=== PATIENT | male | born 1960 | race Caucasian/White ===

== ENCOUNTER 2018-04-07 10:36 | Inpatient (IN) | payer OTHER, SELFPAY ==
[2018-04-07] MEDS ORDERED: Bupivacaine 0.5% 10 ML VIAL ONE (11:47)
[2018-04-07] MEDS ORDERED: Lidocaine 1% (PF) 30 ML VIAL ONE (11:47)
[2018-04-07] MEDS ORDERED: CEFAZOLIN 1 GM VIAL ONE (11:54)
--- NOTE | 2018-04-07 12:02 | RAD ---
THREE VIEWS LEFT HAND: COMPARISON: None. HISTORY: Cut finger on a rope 1 hour prior 1 hour prior when attempting to catch a horse. FINDINGS: There is a mallet deformity of the middle finger at the distal phalanx. No fracture is seen. There is a radiopaque foreign body adjacent to the index finger near the metacarpophalangeal joint. IMPRESSION: Mallet deformity of the middle finger may be acute or chronic. This could represent a rupture of the common extensor tendon if acute. POS: [facility]
[2018-04-07] MEDS ORDERED: Ondansetron PF 4 MG/2 ML Vial ONE (15:20)
[2018-04-07] MEDS ORDERED: Dexamethasone 20 MG/5 ML VIAL ONE (15:20)
[2018-04-07] MEDS ORDERED: PROPOFOL 200 MG/20 ML VIAL ONE (15:20)
[2018-04-07] MEDS ORDERED: Lidocaine 1% PF 5 ML VIAL ONE (15:20)
[2018-04-07] MEDS ORDERED: Ketorolac Tromethamine 30 MG/ML VIAL ONE (15:20)
[2018-04-07] MEDS ORDERED: Metoclopramide HCl 10 MG/2 ML VIAL ONE (15:20)
[2018-04-07] MEDS ORDERED: ePHEDrine/0.9% NaCl/PF SYRINGE 50 mg/10 ml ONE (15:20)
[2018-04-07] MEDS ORDERED: Bacitracin Zinc Ointment 30 gm TUBE ONE (15:45)
[2018-04-07] MEDS ORDERED: Bupivacaine PF 0.5% 30 ML VIAL ONE (15:45)
[2018-04-07] MEDS ORDERED: Sodium Chloride 0.9% 30 ML ONE (15:45)
[2018-04-07] MEDS ORDERED: Fentanyl 100 MCG/2 ML VIAL ONE (15:51)
[2018-04-07] MEDS ORDERED: Ondansetron HCl/PF 4 MG/2 ML Vial IVP PRN (18:10)
[2018-04-07] MEDS ORDERED: Promethazine HCl 25 MG/ML VIAL IM PRN (18:22)
[2018-04-07] MEDS ORDERED: Morphine 2 MG/ML SYRINGE IVP PRN (18:22)
[2018-04-07] MEDS ORDERED: HYDROcodone/Acetaminophen 5/325 mg Tablet PO PRN (18:22)
[2018-04-07] MEDS ORDERED: Acetaminophen 325 MG TAB PO PRN (18:22)
[2018-04-07] MEDS ORDERED: Ondansetron PF 4 MG/2 ML Vial IV PRN (18:22)
[2018-04-07] MEDS ORDERED: Ketorolac Tromethamine 30 MG/ML VIAL IVP PRN (18:25)
[2018-04-07] MEDS ORDERED: Meperidine HCl/PF 25 MG/ML VIAL IM PRN (18:25)
[2018-04-07] MEDS ORDERED: RENALLY ADJUST ALL ANTIBIOTICS FS SCH (18:30)
[2018-04-07] MEDS: Aspirin 81 mg Enteric Coated Tablet PO SCH (20:22)
[2018-04-07] MEDS: Vancomycin HCl 1 GM in Premix Bag 1 BAG IVPB SCH (20:22)
[2018-04-07] MEDS: traMADol HCl 50 MG TAB PO PRN (20:25)
--- NOTE | 2018-04-07 20:50 | RAD ---
LEFT MIDDLE FINGER INTRAOPERATIVE FLUOROSCOPIC IMAGES: COMPARISON: Views of the left hand done earlier today, TECHNIQUE: Three intraoperative fluoroscopic images of the left middle finger are submitted for interpretation. Fluoroscopic guidance was provided for Dr. Quezada. FINDINGS/IMPRESSION: Intraoperative fluoroscopic images demonstrate two K-wires transfixing the distal interphalangeal cass nt of the left middle finger. There is suggestion of a tiny avulsion fracture at the medial aspect b ase of the distal phalanx. Correlation with intraoperative findings is recommended. POS: [facility]
[2018-04-07] MEDS: Ketorolac Tromethamine 30 MG/ML VIAL IVP SCH (23:06)
[2018-04-07 23:33] VITALS: BMI 36.9
[2018-04-08] MEDS: traMADol HCl 50 MG TAB PO PRN (03:13)
[2018-04-08] MEDS: Ketorolac Tromethamine 30 MG/ML VIAL IVP SCH ×4 (05:38→23:53)
[2018-04-08] MEDS: Vancomycin HCl 1 GM in Premix Bag 1 BAG IVPB SCH ×2 (08:51→21:54)
[2018-04-08] MEDS: Aspirin 81 mg Enteric Coated Tablet PO SCH ×2 (08:51→21:54)
[2018-04-08] MEDS ORDERED: TETANUS AND DIPHTHERIA TOX/PF 0.5 ML DISP.SYRIN IM SCH (09:00)
--- NOTE | 2018-04-08 09:57 | OP ---
DATE OF PROCEDURE: 04/07/2018 PREOPERATIVE DIAGNOSES: 1. Left middle finger open dislocation. 2. Left middle finger open extensor tendon laceration terminal nearly partial avulsion. 3. Left middle finger radial collateral ligament tear. 4. Left middle finger digital nerve laceration, radial aspect 2 of 3 rami, terminal, and 3.0 cm woun d. POSTOPERATIVE DIAGNOSES: 1. Left middle finger open dislocation. 2. Left middle finger open extensor tendon laceration terminal nearly partial avulsion. 3. Left middle finger radial collateral ligament tear. 4. Left middle finger digital nerve laceration, radial aspect 2 of 3 rami, terminal, and 3.0 cm woun d. Intact circulation. PROCEDURES PERFORMED: 1. Wound debridement. 2. Debridement of material associated open dislocation with techniques as follows for both the two d ebridements. A. Excisional technique. B. Use of curette, tenotomy scissors, Crile hemostat, [place] blade, Pulsavac. 3. Mild contamination found in the caudal articular, moderate contamination found in the subcutaneou s tissue, requiring more extensive debridement and the excisional technique. 4. Microscopic radial digital nerve repair, 9-0 Nurolon suture. 5. Open reduction and internal fixation of open middle finger distal interphalangeal joint dislocati on. 6. Open extensor tendon repair. 7. Open radial collateral ligament repair. 8. C-arm supervision including debridement of material associated open dislocation distal phalangeal joint. TOURNIQUET TIME: 66 minutes. BLOOD LOSS: 50 mL. FINDINGS: Moderate soft tissue contamination, negative chondral surface damage. INDICATION: The patient with a rope type rotational injury leaving him with open dislocation, dorsal wound more than palmar did extend on the radial aspect, approximately 6 mm almost to the midline, bu t did not cross the midline or palmar aspect. The patient had good circulation preop. DESCRIPTION OF PROCEDURE: After successful general LMA technique by [facility], the limb wa s prepped and draped. The patient has already been anesthetized in the emergency room, could not get a good digital sensory exam, so we did not add more medication. The patient then had the limb prepped and draped. Time out was done appropriately. We exsanguinated the limb to 250 mmHg pressure. His transverse incision was extended distally 5 mm approximately 1 c m exposed, neurovascular bundle where we could see, the deepest portion of his rami was intact, but t he 2 rami of the digital nerves were partially lacerated. We then extended incision enough proximally, so we could expose the entire joint surface, the extenso r tendon was involved partially, 2-3 mm of insertion still left at the nail bed junction and some inv olving the nail germinal matrix base as well. We then did debridement as listed above using t echnique to open the joint, finished debridement of subcutaneous tissue with most contamination was l ocated and then we saw the radial collateral ligament laceration well. We then brought C-arm to the field, there are open reduction after debridement of both the wound and the material associated open with the fracture, visualized the joint being reduced through the defect in the extensor mechanism as well as of the C-arm and performed two 0.35 K-wire fixation in the frontal and sagittal planes and t he joint nearly anatomic. No over compression was accomplished. Now, the joint was stable. Then, we did a repair of the extensor tendon back on its most radial side of the laceration involved a 2 to 3 mm area of tendon distally, so this was repaired using 4-0 Prolene with a khqlrl-rl-[id number] parra ture. The last 5 mm involved near the nail bed, so it was repaired back to the nail bed with 4-0 chr omic in a [id number]-tikra pattern. There were no other defects seen. We then repaired with a 4-0 Pr olene in interrupted [id number]-jg-[id number] fashion of radial collateral ligaments. Microscope brought to the field now. We then brought the microscope on the field to finish the reduc tion. The C-arm was moved away from the field after wires were cut below the distal level of the epi dermis. With the microscope, we identified the digital nerve were showed 2 rami, one completely lace rated, one partially evulsed, and one intact. We then performed prepare of the 2 rami that had the i njury with interrupted 9-0 nylon suture, 2 each for each rami. We had already finished irrigation, before performed the neurovascular repairs, irrigating some sligh tly, we finished debridements, C-arm was off the field and then we closed, repaired the laceration wh ich was 3 cm using interrupted 5-0 nylon. The patient then had the wires cut, hemostasis was excelle nt, so we then placed an Adaptic bacitracin underneath the eponychial fold, more bacitracin ove r the incision area, put him in a dorsal block splint with the PIP and about 30 degrees of flexion wi th the split coming 6-7 mm distal to the long finger. He left the operating room without evidence of anesthetic or operative complication.
[2018-04-09 08:37] LABS: Vancomycin, Trough 8.4 ug/mL
[2018-04-09] MEDS: Aspirin 81 mg Enteric Coated Tablet PO SCH (09:08)
[2018-04-09] MEDS: Vancomycin HCl 1 GM in Premix Bag 1 BAG IVPB SCH (09:08)
[2018-04-09] MEDS ORDERED: Hydrochlorothiazide 25 MG TAB PO SCH (09:45)
[2018-04-09] MEDS ORDERED: Vancomycin HCl 500 MG in Sodium Chloride 0.9% 100 ML IVPB SCH (11:30)
[2018-04-09 12:38] VITALS: BP 136/80; TEMP 98.1
[2018-04-09] MEDS ORDERED: Vancomycin HCl 1.5 GM in Sodium Chloride 0.9% 250 ML 300 ML IVPB SCH (21:00)
[2018-04-10] MEDS ORDERED: Hydrochlorothiazide 25 MG TAB PO SCH (09:00)
== END 2018-04-09 16:09 | disposition home or self-care (01) | DRG 502 ==
LOC: ERS 10:36 → SDC 13:46 → SURG B 18:51 → OBSVTOIN 04-09 08:37
PROVIDERS: ADMIT Orthopaedic Surgery Hand Surgery; ATTEND Orthopaedic Surgery Hand Surgery
PROC: 0MQ80ZZ Repair Left Hand Bursa and Ligament, Open Approach (ICD-10-PCS; principal; 2018-04-07)
PROC: 0LQ80ZZ Repair Left Hand Tendon, Open Approach (ICD-10-PCS; 2018-04-07)
PROC: 0PSV04Z Reposition Left Finger Phalanx with Internal Fixation Device, Open Approach (ICD-10-PCS; 2018-04-07)
DX: S63.253A Unspecified dislocation of left middle finger, initial encounter (principal); S61.213A Laceration without foreign body of left middle finger without damage to nail, initial encounter; S63.613A Unspecified sprain of left middle finger, initial encounter; S64.493A Injury of digital nerve of left middle finger, initial encounter; W23.0XXA Caught, crushed, jammed, or pinched between moving objects, initial encounter; I10 Essential (primary) hypertension
CPT/HCPCS: 36415; 76001; 80202; 96374; J0690; J1100; J1885; J2001; J2270; J2405; J2704; J2765; J3010; J3370; J3490; J7050; S0020

== ENCOUNTER 2019-06-09 08:54 | Outpatient (CLI) | payer OTHER | END 2019-06-09 08:55 | disposition home or self-care (01) | LOC: DTY/OP 08:54 | PROVIDERS: ATTEND Specialist | DX: Z01.818 Encounter for other preprocedural examination (principal); E66.01 Morbid (severe) obesity due to excess calories | CPT/HCPCS: 97802 ==

== ENCOUNTER 2019-06-26 09:34 | Outpatient (CLI) | payer OTHER ==
--- NOTE | 2019-06-29 18:58 | EKG ---
Test Reason : Blood Pressure : / mmHG Vent. Rate : 056 BPM Atrial Rate : 056 BPM P-R Int : 174 ms QRS Dur : 096 ms QT Int : 448 ms P-R-T Axes : 042 038 021 degrees QTc Int : 432 ms Sinus bradycardia Incomplete right bundle branch block Cannot rule out Anterior infarct , age undetermined Low voltage QRS Abnormal ECG No previous ECGs available Confirmed by NINFA SOLIS, DR. Cui ([id number]) on 06/29/2019 6:57:56 PM Referred By: DONNA Confirmed By:DR. Basilia OCASIO MD
== END 2019-06-26 09:35 | disposition home or self-care (01) ==
LOC: LABBT 09:34
PROVIDERS: ATTEND Specialist
DX: Z01.810 Encounter for preprocedural cardiovascular examination (principal); E66.01 Morbid (severe) obesity due to excess calories
CPT/HCPCS: 93005; 93010

== ENCOUNTER 2019-06-26 13:00 | Inpatient (IN) | payer OTHER ==
[2019-06-26 13:10] VITALS: BMI 41.6
[2019-07-02] MEDS ORDERED: Heparin 5,000 UNITS/ML VIAL ONE (08:12)
[2019-07-02] MEDS ORDERED: ceFOXitin 2 GM/50 ML Duplex BAG ONE (08:12)
[2019-07-02] MEDS ORDERED: Scopolamine 1.5 mg/72 hour Patch ONE (08:12)
[2019-07-02] MEDS ORDERED: Acetaminophen 500 MG TAB ONE (08:12)
[2019-07-02] MEDS ORDERED: Ketorolac Tromethamine 30 MG/ML VIAL ONE (08:12)
[2019-07-02] MEDS ORDERED: PROPOFOL 200 MG/20 ML VIAL ONE (09:39)
[2019-07-02] MEDS ORDERED: PHENYLEPHRINE-NS 100 MCG/ML 10 ML SYRINGE ONE (09:39)
[2019-07-02] MEDS ORDERED: Lidocaine 1% PF 5 ML VIAL ONE (09:39)
[2019-07-02] MEDS ORDERED: Glycopyrrolate 0.2 MG/ML 5 ML SYRINGE ONE (09:39)
[2019-07-02] MEDS ORDERED: Ondansetron PF 4 MG/2 ML Vial ONE (09:39)
[2019-07-02] MEDS ORDERED: Dexamethasone 20 MG/5 ML VIAL ONE (09:39)
[2019-07-02] MEDS ORDERED: Rocuronium Bromide 10 MG/ML (10ML VIAL) ONE (09:39)
[2019-07-02] MEDS ORDERED: Lidocaine 1% w/Epinephrine 1:100K 20 ML VIAL ONE (10:19)
[2019-07-02] MEDS ORDERED: Bupivacaine 0.25% HCL 30 ML VIAL ONE (10:19)
[2019-07-02] MEDS ORDERED: Midazolam HCl 2 mg/2 ml Vial ONE (10:20)
[2019-07-02] MEDS ORDERED: Fentanyl 100 MCG/2 ML VIAL ONE ×3 (10:22→13:49)
[2019-07-02] MEDS ORDERED: Promethazine HCl 25 MG/ML VIAL SLOW IVP PRN (12:19)
[2019-07-02] MEDS ORDERED: Promethazine HCl 25 MG/ML VIAL IM PRN ×2 (12:19→12:28)
[2019-07-02] MEDS ORDERED: Ondansetron HCl/PF 4 MG/2 ML Vial IVP PRN (12:19)
[2019-07-02] MEDS ORDERED: Morphine 2 MG/ML SYRINGE SLOW IVP PRN (12:28)
[2019-07-02] MEDS ORDERED: Dextrose 5% in Water 1,000 ML IV PRN (12:28)
[2019-07-02] MEDS ORDERED: Dextrose 50% Abboject 50 ML SYRINGE SLOW IVP PRN (12:28)
[2019-07-02] MEDS ORDERED: Hydrocodone-Acetamin 15 ML UDCUP PO PRN (12:28)
[2019-07-02] MEDS ORDERED: diphenhydrAMINE 50 MG/ML VIAL IVP PRN (12:28)
[2019-07-02] MEDS ORDERED: Morphine 4 MG/ML VIAL SLOW IVP PRN (12:28)
[2019-07-02] MEDS ORDERED: hydrALAZINE 20 MG/ML VIAL SLOW IVP PRN (12:28)
[2019-07-02] MEDS ORDERED: Ondansetron PF 4 MG/2 ML Vial IVP PRN (12:28)
[2019-07-02] MEDS ORDERED: Promethazine HCl 25 MG/ML VIAL ONE (12:37)
[2019-07-02] MEDS: D5 1/2 NS w/20 mEq KCL 1,000 ML IV SCH ×2 (15:10→21:21)
[2019-07-02] MEDS: Ketorolac Tromethamine 30 MG/ML VIAL IVP SCH ×2 (17:51→23:02)
[2019-07-02] MEDS ORDERED: Enoxaparin Sodium 40 MG/0.4 ML SYRINGE SC SCH (21:00)
[2019-07-03 05:23] LABS: #Lymphocytes 0.9 thou/uL (1.20-3.40); #Monocytes 0.9 thou/uL (0.11-0.59); %Basophils 0.1 % (0.0-1.0); %Eosinophils 0.2 % (0.0-10.0); %Lymphocytes 9.3 % (21.0-51.0); %Monocytes 9.1 % (0.0-10.0); %Neutrophils 81.4 % (42.0-75.0); Hemoglobin 13.8 g/dL (14.0-18.0); Mean Corpuscular Hemoglobin 30.6 pg (27.0-31.0); Mean Corpuscular Volume 92.6 fL (78.0-98.0); Mean Platelet Volume 8.1 fL (7.4-10.4); Platelet Count 246 thou/uL (130-400); RBC Distribution Width 11.8 % (11.5-14.5); Red Blood Cell (RBC) Count 4.53 mill/uL (4.70-6.10); White Blood Cell (WBC) Count 9.8 thou/uL (4.8-10.8)
--- NOTE | 2019-07-03 05:32 | OP ---
DATE OF PROCEDURE: 07/02/2019 PREOPERATIVE DIAGNOSIS: Morbid obesity. POSTOPERATIVE DIAGNOSIS: Morbid obesity. PROCEDURE PERFORMED: Laparoscopic vertical sleeve gastrectomy using the ViSiGi device. ANESTHESIA: General endotracheal. INDICATIONS: The patient is a 59-year-old white male. He presents with recent morbid obesity and has undergone extensive evaluation and education, presents at this time for sleeve gastrectomy. DESCRIPTION OF OPERATION: Informed consent was obtained. The patient was taken to the operating room where general endotracheal anesthesia was obtained with the patient in supine position. Abdomen was prepped with ChloraPrep and draped in sterile fashion. Local anesthetic was infiltrated and 5 mm supraumbilical incision was created through which Veress needle was passed to the peritoneal cavity and pneumoperitoneum established using carbon dioxide up to a pressure of 15 mmHg. A 5 mm trocar port was passed through this same incision. Laparoscopic camera was passed through this port. Under direct vision, 4 additional ports were placed including bilateral 5 mm subcostal ports, a 12 mm right paramedian port and a 15 mm left paramedian port. A 5 mm epigastric incision was created through which Karon retractor was passed into the abdominal cavity and used to retract the left lobe of the liver. The patient was placed into reverse Trendelenburg position. The ViSiGi device was advanced within the stomach and used to decompress this. The pylorus was identified and beginning 4 cm proximal to the pylorus, the omentum and vascular tissue along the greater curvature was divided using the LigaSure in an ascending fashion up to the angle of His. All posterior adhesions were mobilized. The short gastric vessels were carefully divided and then hemostasis was maintained using the LigaSure. Once this was completely mobilized, the ViSiGi was carefully positioned at the level of the pylorus and placed to suction, which was clearly defining the lesser curvature of the stomach. The gastrectomy was then performed using a series of fires of the [place]ermo stapler using a green load followed by a gold load and a series of blue loads until completion of the gastrectomy. The ViSiGi along the lesser curvature was used as a size 36 bougie to guide in the gastric division. Care was taken to avoid narrowing the incisura or the gastroesophageal junction. The integrity of the staple line was then assessed by insufflating gas through the ViSiGi while irrigating along the staple line. There was no evidence of an air leak. There was no evidence of bleeding along the staple line. The resected stomach was then removed through the 15 mm port and the fascia was closed with 0 Vicryl suture using a GraNee needle. I then closed the 12 mm port also using the GraNee needle and 0 Vicryl suture. The Karon retractor was removed. All ports and instruments were removed under direct vision. All irrigant was aspirated. Pneumoperitoneum was carefully evacuated. 0.25% Marcaine with epinephrine was infiltrated into each port site. Skin edges approximated with 4-0 Monocryl subcuticular suture. Dermabond was placed externally. There were no complications. The patient tolerated the procedure well and was taken to recovery room in stable condition. FINDINGS: There were no intraabdominal adhesions. The liver had decompressed nicely with his preoperative diet and no longer had fatty changes. The surgery was performed safely with essentially no blood loss. The patient tolerated the procedure well and was taken to recovery room in stable condition. Job ID: [id number]
[2019-07-03] MEDS: Ketorolac Tromethamine 30 MG/ML VIAL IVP SCH (05:33)
[2019-07-03] MEDS: D5 1/2 NS w/20 mEq KCL 1,000 ML IV SCH (05:44)
[2019-07-03 05:47] LABS: Anion Gap 11 mmol/L (10-20); BUN (Urea Nitrogen) 8 mg/dL (8.4-25.7); Calc. Creatinine Clearance 160 mL/min (70-130); Calcium 8.7 mg/dL (7.8-10.44); Carbon Dioxide 26 mmol/L (22-29); Chloride 105 mmol/L (98-107); Estimated GFR-MDRD 86; Glucose 130 mg/dL (70-105); Potassium 4.2 mmol/L (3.5-5.1); Sodium 138 mmol/L (136-145)
[2019-07-03 08:24] VITALS: BP 149/84; TEMP 98.1
[2019-07-03] MEDS ORDERED: Pantoprazole 40 MG VIAL IVP SCH (09:00)
== END 2019-07-03 11:20 | disposition home or self-care (01) | DRG 621 ==
LOC: SURG A 07-02 07:53
PROVIDERS: ADMIT Specialist; ATTEND Specialist
PROC: 0DB64Z3 Excision of Stomach, Percutaneous Endoscopic Approach, Vertical (ICD-10-PCS; principal; 2019-07-02)
DX: E66.01 Morbid (severe) obesity due to excess calories (principal); I10 Essential (primary) hypertension; I73.9 Peripheral vascular disease, unspecified; M10.9 Gout, unspecified; F17.200 Nicotine dependence, unspecified, uncomplicated; Z68.41 Body mass index [BMI] 40.0-44.9, adult; Z79.899 Other long term (current) drug therapy
CPT/HCPCS: 36415; 80048; 85025; 88307; 88312; C9113; J0360; J0694; J1100; J1644; J1650; J1885; J2001; J2250; J2270; J2405; J2550; J2704; J3010; S0020

== ENCOUNTER 2019-07-07 10:02 | Day surgery (SDC) | payer OTHER ==
[2019-07-07] MEDS ORDERED: Multivitamins, Adult 10 ML in Sodium Chloride 0.9% 1,000 ML IV SCH (11:00)
[2019-07-07] MEDS ORDERED: Lactated Ringer's 1,000 ML IV SCH (11:00)
[2019-07-07 13:23] LABS: Chloride 105 mmol/L (98-107); Potassium 3.8 mmol/L (3.5-5.1); Sodium 142 mmol/L (136-145)
[2019-07-07 13:24] LABS: Calcium 9.5 mg/dL (7.8-10.44); Glucose 98 mg/dL (70-105)
[2019-07-07 13:26] LABS: Anion Gap 11 mmol/L (10-20); Carbon Dioxide 30 mmol/L (22-29)
[2019-07-07 13:27] LABS: Calc. Creatinine Clearance 0 mL/min (70-130); Estimated GFR-MDRD 60
[2019-07-07 13:28] VITALS: BP 120/69; TEMP 97.6
[2019-07-07 13:28] LABS: BUN (Urea Nitrogen) 18 mg/dL (8.4-25.7)
== END 2019-07-07 16:06 | disposition home or self-care (01) ==
LOC: ONC/OP 10:02
PROVIDERS: ATTEND Specialist
DX: E86.0 Dehydration (principal)
CPT/HCPCS: 36415; 80048; 96361; 96365; 96366; J7050